=== PATIENT | female | born 1995 | race Two or more races ===

== ENCOUNTER 2022-08-04 07:27 | Emergency (ER) | payer BC ==
[~2022-08-04] VITALS: Ht 157.5 cm; Wt 54.4 kg
--- NOTE | 2022-08-04 07:59 | NUR ---
PT C/O BILATERAL ABDOMINAL PAIN 5/10 WITH N/V AND DIARRHEA FOR 6 DAYS. ABDOMEN IS SOFT AND NON DESTENDED. AAO X 4, STEADY GAIT. PLACED IN A MONITOR IN BED AND KEPT COMFORTABLE. AWAITING MD ORDERS.
[2022-08-04] MEDS ORDERED: ONDANSETRON HCL/PF 4 MG/2 ML VIAL IVP ONE (08:00)
[2022-08-04] MEDS ORDERED: IV NS 0.9% 1,000 ML BAG IV ONE (08:00)
--- NOTE | 2022-08-04 08:00 | NUR ---
DR. ANGEL AT BEDSIDE.
--- NOTE | 2022-08-04 08:01 | NUR ---
URINE SAMPLE COLLECTED AND SENT TO LAB.
[2022-08-04] MEDS ORDERED: ONDA4TAB5 PO (08:21)
[2022-08-04] MEDS ORDERED: LIDOCAINE VISCOUS 2% UD 15 ML UDC MM ONE (08:30)
[2022-08-04] MEDS ORDERED: DICYCLOMINE HCL INJ 20 MG/2 ML AMPUL IM ONE ×2 (08:30→08:36)
[2022-08-04] MEDS ORDERED: MAG HYDROX/AL HYDROX/SIMETH 30 ML UDC PO ONE (08:30)
[2022-08-04] MEDS ORDERED: FAMOTIDINE/PF INJ 20 MG/2 ML VIAL IV ONE (08:30)
[2022-08-04] MEDS ORDERED: ONDANSETRON HCL/PF 4 MG/2 ML VIAL ONE (08:37)
[2022-08-04 08:40] LABS: BASOPHILS # (AUTO) 0.1 K/uL (0.0-0.2); BASOPHILS % (AUTO) 0.8 % (0.0-2.0); EOSINOPHILS % (AUTO) 2.4 % (0.0-6.0); HEMATOCRIT 37 % (33-45); HEMOGLOBIN 12.2 g/dL (11.5-14.8); LYMPHOCYTES # (AUTO) 1.4 K/uL (0.8-4.8); LYMPHOCYTES % (AUTO) 19.3 % (20.0-44.0); MEAN CORPUSCULAR HGB CONC 33 g/dl (31.0-36.0); MEAN CORPUSCULAR VOLUME 92 fL (82-100); MONOCYTES # (AUTO) 0.9 K/uL (0.1-1.30); MONOCYTES % (AUTO) 11.5 % (2.0-12.0); PLATELET COUNT (AUTO) 229 K/uL (150-450); RED BLOOD CELL COUNT(AUTO) 4.02 MIL/uL (4.0-5.2); WHITE BLOOD COUNT (AUTO) 7.5 K/uL (4.3-11.0)
[2022-08-04 09:06] LABS: ALBUMIN 3.7 g/dL (3.4-5.0); BILIRUBIN,DIRECT 0.1 mg/dL (0.0-0.2); BILIRUBIN,TOTAL 0.3 mg/dL (0.2-1.0); CALCIUM, SERUM 8.5 mg/dL (8.5-10.1); CREATININE 0.9 mg/dL (0.6-1.3); POTASSIUM 4.4 mmol/L (3.5-5.1); TOTAL PROTEIN, SERUM 7.3 g/dL (6.4-8.2)
[2022-08-04 09:11] LABS: BILIRUBIN,URINE NEGATIVE (NEGATIVE); COLOR,URINE YELLOW (YELLOW); LEUKOCYTE ESTERASE ,URINE NEGATIVE (NEGATIVE); NITRITE, URINE NEGATIVE (NEGATIVE); PROTEIN,URINE NEGATIVE (NEGATIVE); UGLUCOSE NEGATIVE (NEGATIVE); UROBILINOGEN,URINE 0.2 EU/dL (0.2)
--- NOTE | 2022-08-04 09:29 | NUR ---
PT STATES "I FEEL BETTER", DENIES NAUSEA.
[2022-08-04 09:52] LABS: RBC,URINE 0-2 /HPF (0-2); WBC,URINE 0-2 /HPF (0-3)
[2022-08-04 09:56] LABS: BACTERIA,URINE Few /HPF (None Seen)
[2022-08-04] MEDS ORDERED: FAMO-131 PO (11:36)
[2022-08-04] MEDS ORDERED: OMEP20CA15 PO (11:36)
[2022-08-04 11:44] VITALS: BP 110/75
--- NOTE | 2022-08-04 11:44 | NUR ---
Patient discharged to home in stable condition. Written and verbal after care instructions given. Patient verbalizes understanding of instruction.
== END 2022-08-04 11:46 | disposition home or self-care (01) ==
LOC: ER 07:36
DX: N20.0 Calculus of kidney (principal); Q63.2 Ectopic kidney; R10.9 Unspecified abdominal pain; R11.2 Nausea with vomiting, unspecified; R19.7 Diarrhea, unspecified; Z87.442 Personal history of urinary calculi
CPT/HCPCS: 99284; 74176; 96374; 96361; 96375; 96372; 85025; 80048; 83690; 80076; 84703; 81001; 36415; J2405; J7030; J0500

== ENCOUNTER 2023-05-24 18:56 | Emergency (ER) | payer BC ==
[~2023-05-24] VITALS: Ht 157.5 cm; Wt 54.4 kg
[~2023-05-24 18:56] MED LIST: FAMO-131 PO; OMEP20CA15 PO; ONDA4TAB5 PO
[2023-05-24] MEDS ORDERED: MAG HYDROX/AL HYDROX/SIMETH 30 ML UDC PO ONE (19:30)
[2023-05-24] MEDS ORDERED: KETOROLAC TROMETHAMINE INJ 30 MG/ML VIAL IV ONE (19:30)
[2023-05-24] MEDS ORDERED: LIDOCAINE VISCOUS 2% UD 15 ML UDC MM ONE (19:30)
[2023-05-24] MEDS ORDERED: PANTOPRAZOLE 40 MG VIAL IV ONE (19:30)
[2023-05-24] MEDS ORDERED: ONDANSETRON HCL/PF 4 MG/2 ML VIAL IVP ONE (19:30)
[2023-05-24] MEDS ORDERED: IV NS 0.9% 1,000 ML BAG IV ONE (19:30)
[2023-05-24 19:34] LABS: PREGNANCY TEST URINE QUAL NEGATIVE (NEGATIVE)
[2023-05-24] MEDS ORDERED: IV NS 0.9% 250 ML IV ONE (19:45)
[2023-05-24] MEDS ORDERED: IOHEXOL-300 100 ML VIAL IV ONE (19:45)
[2023-05-24 19:53] LABS: BASOPHILS # (AUTO) 0.1 K/uL (0.0-0.2); BASOPHILS % (AUTO) 1.1 % (0.0-2.0); EOSINOPHILS # (AUTO) 0.2 K/uL (0.0-0.7); EOSINOPHILS % (AUTO) 5.2 % (0.0-6.0); HEMATOCRIT 34 % (33-45); HEMOGLOBIN 11.1 g/dL (11.5-14.8); LYMPHOCYTES % (AUTO) 45.5 % (20.0-44.0); MEAN CORPUSCULAR HEMOGLOBIN 30 PG (26.0-33.0); MEAN CORPUSCULAR HGB CONC 33 g/dl (31.0-36.0); MEAN CORPUSCULAR VOLUME 91 fL (82-100); MONOCYTES # (AUTO) 0.5 K/uL (0.1-1.30); MONOCYTES % (AUTO) 10.7 % (2.0-12.0); NEUTROPHILS # (AUTO) 1.7 K/uL (1.8-8.9); NEUTROPHILS % (AUTO) 37.5 % (43.0-81.0); PLATELET COUNT (AUTO) 227 K/uL (150-450); RED BLOOD CELL COUNT(AUTO) 3.67 MIL/uL (4.0-5.2); RED CELL DISTRIBUTION WIDTH 13.5 % (11.5-15.0); WHITE BLOOD COUNT (AUTO) 4.4 K/uL (4.3-11.0)
[2023-05-24] MEDS ORDERED: MAG HYDROX/AL HYDROX/SIMETH 30 ML UDC ONE (19:53)
[2023-05-24] MEDS ORDERED: KETOROLAC TROMETHAMINE INJ 30 MG/ML VIAL ONE (19:53)
[2023-05-24] MEDS ORDERED: ONDANSETRON HCL/PF 4 MG/2 ML VIAL ONE (19:53)
[2023-05-24] MEDS ORDERED: LIDOCAINE VISCOUS 2% UD 15 ML UDC ONE (19:53)
[2023-05-24] MEDS ORDERED: PANTOPRAZOLE 40 MG VIAL ONE (19:53)
[2023-05-24 20:14] LABS: CALCIUM, SERUM 9.3 mg/dL (8.5-10.1); CREATININE 0.9 mg/dL (0.6-1.3); POTASSIUM 4.3 mmol/L (3.5-5.1)
[2023-05-24 20:19] LABS: ALBUMIN 3.7 g/dL (3.4-5.0); BILIRUBIN,DIRECT 0.1 mg/dL (0.0-0.2); BILIRUBIN,TOTAL 0.3 mg/dL (0.2-1.0); TOTAL PROTEIN, SERUM 6.7 g/dL (6.4-8.2)
[2023-05-24 20:49] LABS: INR 0.97 (0.91-1.10); PARTIAL THROMBOPLASTIN TIME 33.9 SEC (24.3-34.3); PROTHROMBIN TIME 10.3 SECS (9.2-11.1)
[2023-05-24] MEDS ORDERED: ONDA4TAB11 PO (21:19)
[2023-05-24] MEDS ORDERED: PANT40TA2 PO (21:19)
[2023-05-24] MEDS ORDERED: MAG355OR18 PO (21:19)
[2023-05-24] MEDS ORDERED: DICY10CA37 PO (21:20)
[2023-05-24 21:30] VITALS: BP 110/71; TEMP 98.1; O2SAT 100
== END 2023-05-24 21:30 | disposition home or self-care (01) ==
LOC: ER 19:00
DX: N20.0 Calculus of kidney (principal); R10.13 Epigastric pain; R10.30 Lower abdominal pain, unspecified
CPT/HCPCS: 99285; 74177; 96374; 76705; 96375; 96361; 85025; 80048; 83690; 80076; 84703; 36415; 85730; J1885; J2405; J7030; J7050; C9113; Q9967

== ENCOUNTER 2024-12-12 00:11 | Emergency (ER) | payer BC, OTHER ==
[~2024-12-12] VITALS: Ht 157.5 cm; Wt 57.6 kg
[~2024-12-12 00:11] MED LIST changes: +DICY10CA37 PO; +MAG355OR18 PO; +ONDA4TAB11 PO; +PANT40TA2 PO
[2024-12-12] MEDS ORDERED: KETOROLAC TROMETHAMINE INJ 30 MG/ML VIAL ONE ×2 (00:48→03:38)
[2024-12-12] MEDS ORDERED: ONDANSETRON HCL/PF 4 MG/2 ML VIAL ONE (00:48)
[2024-12-12 00:50] LABS: BASOPHILS % (AUTO) 0.8 % (0.0-2.0); EOSINOPHILS % (AUTO) 2.6 % (0.0-6.0); HEMATOCRIT 35 % (33-45); MEAN CORPUSCULAR HEMOGLOBIN 30 PG (26.0-33.0); MEAN CORPUSCULAR HGB CONC 34 g/dl (31.0-36.0); MEAN CORPUSCULAR VOLUME 89 fL (82-100); MONOCYTES % (AUTO) 9.8 % (2.0-12.0); NEUTROPHILS % (AUTO) 35.8 % (43.0-81.0); PLATELET COUNT (AUTO) 190 K/uL (150-450); RED BLOOD CELL COUNT(AUTO) 3.95 MIL/uL (4.0-5.2); WHITE BLOOD COUNT (AUTO) 5.2 K/uL (4.3-11.0)
[2024-12-12 00:51] LABS: EOSINOPHILS # (AUTO) 0.1 K/uL (0.0-0.7); LYMPHOCYTES # (AUTO) 2.6 K/uL (0.8-4.8); MONOCYTES # (AUTO) 0.5 K/uL (0.1-1.30); NEUTROPHILS # (AUTO) 1.9 K/uL (1.8-8.9)
[2024-12-12] MEDS: IV NS 0.9% 1,000 ML BAG IV ONE (00:54)
[2024-12-12] MEDS: KETOROLAC TROMETHAMINE 15 MG/ML VIAL IV ONE (00:55)
[2024-12-12] MEDS: ONDANSETRON HCL/PF 4 MG/2 ML VIAL IVP ONE (00:56)
[2024-12-12 01:02] LABS: CALCIUM, SERUM 7.8 mg/dL (8.5-10.1); CREATININE 0.8 mg/dL (0.6-1.3); POTASSIUM 3.2 mmol/L (3.5-5.1)
[2024-12-12 01:11] LABS: ALBUMIN 3.4 g/dL (3.4-5.0); BILIRUBIN,TOTAL 0.3 mg/dL (0.2-1.0)
[2024-12-12 01:25] LABS: INR 1.02 (0.91-1.10); PARTIAL THROMBOPLASTIN TIME 27.6 SEC (24.3-34.3); PROTHROMBIN TIME 10.8 SECS (9.2-11.1)
[2024-12-12] MEDS ORDERED: MORPHINE SULFATE INJ 4 MG/ML DISP.SYRIN ONE (01:34)
[2024-12-12] MEDS: MORPHINE SULFATE INJ 2 MG/ML DISP.SYRIN IV ONE (01:37)
[2024-12-12 01:59] LABS: APPEARANCE,URINE CLEAR (CLEAR); BILIRUBIN,URINE NEGATIVE (NEGATIVE); BLOOD, URINE NEGATIVE Ery/uL (NEGATIVE); COLOR,URINE YELLOW (YELLOW); KETONES,URINE NEGATIVE (NEGATIVE); LEUKOCYTE ESTERASE ,URINE NEGATIVE (NEGATIVE); NITRITE, URINE NEGATIVE (NEGATIVE); PROTEIN,URINE TRACE mg/dl (NEGATIVE); UGLUCOSE NEGATIVE (NEGATIVE); UROBILINOGEN,URINE 0.2 EU/dL (0.2)
[2024-12-12 02:02] LABS: PREGNANCY TEST URINE QUAL NEGATIVE (NEGATIVE)
[2024-12-12 02:30] LABS: LACTIC ACID 2.1 mmol/L (0.4-2.0)
[2024-12-12] MEDS: KETOROLAC TROMETHAMINE INJ 30 MG/ML VIAL IV ONE (03:41)
[2024-12-12 03:56] LABS: ALBUMIN 3.8 g/dL (3.4-5.0); BILIRUBIN,TOTAL 0.3 mg/dL (0.2-1.0); CALCIUM, SERUM 8.3 mg/dL (8.5-10.1); CREATININE 0.9 mg/dL (0.6-1.3); POTASSIUM 3.4 mmol/L (3.5-5.1); TOTAL PROTEIN, SERUM 6.4 g/dL (6.4-8.2)
[2024-12-12] MEDS ORDERED: IBUP-1957 PO (04:04)
[2024-12-12] MEDS ORDERED: ONDA4TAB5 PO (04:04)
[2024-12-12] MEDS ORDERED: TAMS-12 PO (04:04)
[2024-12-12 04:25] VITALS: BP 99/62; TEMP 98.6; O2SAT 99
== END 2024-12-12 04:25 | disposition home or self-care (01) ==
LOC: ER 00:16
DX: N20.0 Calculus of kidney (principal); Q63.2 Ectopic kidney; E87.20 Acidosis, unspecified; R11.2 Nausea with vomiting, unspecified; M32.9 Systemic lupus erythematosus, unspecified; E87.0 Hyperosmolality and hypernatremia; Z79.899 Other long term (current) drug therapy
CPT/HCPCS: 99285; 74176; 96374; 96375; 96361; 96376; 85025; 83605 ×2; 83690; 84703; 81003; 36415; 80053; 85730; 80048; 80076; J1885 ×2; J2270; J2405; J7030

== ENCOUNTER 2024-12-15 16:41 | Emergency (ER) | payer OTHER ==
[~2024-12-15] VITALS: Ht 157.5 cm; Wt 59.4 kg
[~2024-12-15 16:41] MED LIST changes: +IBUP-1957 PO; +TAMS-12 PO
[2024-12-15 17:29] LABS: BASOPHILS % (AUTO) 0.6 % (0.0-2.0); EOSINOPHILS # (AUTO) 0.1 K/uL (0.0-0.7); EOSINOPHILS % (AUTO) 1.9 % (0.0-6.0); HEMATOCRIT 33 % (33-45); LYMPHOCYTES # (AUTO) 1.3 K/uL (0.8-4.8); LYMPHOCYTES % (AUTO) 19.7 % (20.0-44.0); MEAN CORPUSCULAR HEMOGLOBIN 30 PG (26.0-33.0); MEAN CORPUSCULAR HGB CONC 34 g/dl (31.0-36.0); MEAN CORPUSCULAR VOLUME 90 fL (82-100); MONOCYTES # (AUTO) 0.5 K/uL (0.1-1.30); MONOCYTES % (AUTO) 7.9 % (2.0-12.0); NEUTROPHILS # (AUTO) 4.6 K/uL (1.8-8.9); NEUTROPHILS % (AUTO) 69.9 % (43.0-81.0); PLATELET COUNT (AUTO) 174 K/uL (150-450); RED BLOOD CELL COUNT(AUTO) 3.61 MIL/uL (4.0-5.2); RED CELL DISTRIBUTION WIDTH 12.7 % (11.5-15.0); WHITE BLOOD COUNT (AUTO) 6.6 K/uL (4.3-11.0)
[2024-12-15 17:31] LABS: APPEARANCE,URINE CLEAR (CLEAR); BILIRUBIN,URINE 1+ (NEGATIVE); BLOOD, URINE 2+ Ery/uL (NEGATIVE); COLOR,URINE YELLOW (YELLOW); KETONES,URINE 3+ mg/dL (NEGATIVE); LEUKOCYTE ESTERASE ,URINE NEGATIVE (NEGATIVE); NITRITE, URINE NEGATIVE (NEGATIVE); PROTEIN,URINE NEGATIVE (NEGATIVE); UGLUCOSE NEGATIVE (NEGATIVE); UROBILINOGEN,URINE 0.2 EU/dL (0.2)
[2024-12-15] MEDS ORDERED: ONDANSETRON HCL/PF 4 MG/2 ML VIAL ONE (17:31)
[2024-12-15 17:36] LABS: ADD URINE CULTURE NO; BACTERIA,URINE Few /HPF (None Seen)
[2024-12-15 17:51] LABS: CALCIUM, SERUM 8.8 mg/dL (8.5-10.1); CREATININE 0.8 mg/dL (0.6-1.3); POTASSIUM 3.2 mmol/L (3.5-5.1)
[2024-12-15] MEDS: IV NS 0.9% 500 ML BAG IV ONE (17:51)
[2024-12-15] MEDS: ONDANSETRON HCL/PF 4 MG/2 ML VIAL IV ONE (17:53)
[2024-12-15] MEDS: TAMSULOSIN 0.4 MG CAP.SR.24H PO ONE (18:30)
[2024-12-15] MEDS ORDERED: KETOROLAC TROMETHAMINE 15 MG/ML VIAL ONE (18:38)
[2024-12-15] MEDS: KETOROLAC TROMETHAMINE 15 MG/ML VIAL IV ONE (18:42)
[2024-12-15] MEDS ORDERED: ONDA4TAB11 PO (19:07)
[2024-12-15] MEDS ORDERED: TAMS-12 PO (19:07)
[2024-12-15 20:05] VITALS: BP 105/72; TEMP 98; O2SAT 99
== END 2024-12-15 20:05 | disposition home or self-care (01) ==
LOC: ER 16:42
DX: N20.0 Calculus of kidney (principal); N83.202 Unspecified ovarian cyst, left side; M32.9 Systemic lupus erythematosus, unspecified; R10.2 Pelvic and perineal pain; Q63.2 Ectopic kidney; Z79.899 Other long term (current) drug therapy
CPT/HCPCS: 99285; 76856; 96374; 96375; 76770; 85025; 80048; 81001; 36415; 84702; J1885; J2405; J7040